=== PATIENT | female | born 1940 | race Caucasian/White ===

== ENCOUNTER → 2021-07-02 | Outpatient (CLI) | payer MEDICARE, BC ==
[2021-07-02 11:48] VITALS: BP 158/54; PULSE 92; RESP 20
--- NOTE | 2021-07-02 12:29 | P.PAINCN ---
History of Present Illness - Reason for Consult Consult date: 07/02/21 - History of Present Illness This is a 21 years old female with a chronic history of severe low back pain and severe neck pain, patient reported that her neck pain and low back pain started more than 10 years ago she denies any initiating event, she reported her low back pain is more severe than her neck pain, the pain is constant and increases with any activity interference with the quality of life, she ambulates using walker , patient currently on multiple pain medication and she continued to have severe pain, denies any side effect of the medication, denies any fever or night sweats but she denies any change in bowel movements or urination Past Medical History Past Medical History: Cancer, Hypertension, Osteoarthritis (OA) Additional Past Medical History / Comment(s): anemic. "prediabetic". neuropathy feet and hands. back pain. esophageal carcinoma History of Any Multi-Drug Resistant Organisms: None Reported Past Surgical History: Back Surgery, Hysterectomy, Pacemaker Additional Past Surgical History / Comment(s): part of esophagus and stomach removed Past Anesthesia/Blood Transfusion Reactions: Previous Problems w/ Anesthesia Additional Past Anesthesia/Blood Transfusion Reaction / Comm: "she cant go under full anesthesia afraid that she wont wake up" Type of Cardiac Device: Permanent Pacemaker Device Placement Date:: 01/2021 Smoking Status: Former smoker Medications and Allergies Home Medications Medication Instructions Recorded Confirmed Type Allopurinol [Zyloprim] 100 mg PO BID 07/02/21 07/02/21 History Cyclobenzaprine [Flexeril] 5 mg PO TID 07/02/21 07/02/21 History DULoxetine HCL [Cymbalta] 60 mg PO DAILY 07/02/21 07/02/21 History Gabapentin 300 mg PO Q6HR 07/02/21 07/02/21 History HYDROcodone/APAP 10-325MG [[place] 1 tab PO Q4-6H PRN 07/02/21 07/02/21 History 10-325] Losartan Potassium [Cozaar] 25 mg PO DAILY 07/02/21 07/02/21 History rOPINIRole HCL [Requip] 2 mg PO BID 07/02/21 07/02/21 History Allergies Allergy/AdvReac Type Severity Reaction Status Date / Time codeine Allergy Unknown Verified 06/26/21 13:19 latex Allergy Unknown Verified 06/26/21 13:19 steroids Allergy Unknown Uncoded 06/26/21 13:19 Physical Exam Vitals: Vital Signs Pulse Resp BP Pulse Ox 07/02/21 11:33 92 20 158/54 99 Physical Examinations : -Constitutiona : Cooperative , not in acute distress . -HEENT : nech : supple , no Lymphadenopathy , normal thyroid size . : eyes : no ptosis , no icterus, no photophobia . - neurologic : Cranial nerve II to XII intact , no focal neurological deffecit . -psychatric : alert , oriented X 3 , appropriate affect , intact judgment and insight . -Lymphatic : no Lymphadenopathy . - musculoskeltal : Cervical Spine motor stregnth in the deltoid and biceps, normal right side , normal Left side motor stregnth biceps and the wrist extensors normal right side ,normal left side . motor stregnth in the triceps muscle . normal Right side , normal Left side deep tendon reflexes normal at the biceps , normal at Brachioradialis , normal at triceps. cervical facet loading test: Positive Bilaterally Spurling test= positive Right , positive left. Neck distraction test= positive Right , positive left. Robin sign= positive right, positive left . Lumber spine moter stegnth lower extremities ,thigh and legs 5/5 Right side , 5/5 Left side deep tendon reflexes : normal Knee Jerk , normal ankle Jerk lumber facet Loading Test =positive Right , positive Left Range of motion of the lumbar spine Flexion 30 degrees, extension 10 degrees strait leg raising test = positive at 30 degree Fabere test= positive Right , and positive LT . tenderness over the Sacroiliac joint on the Right , and Left sides Results Comments: Computed tomography scan of the lumbar spine and lumbar degenerative disc disease Assessment and Plan Plan: Assessment and plan=1-lumbar radiculopathy. 2-lumbar degenerative disc disease. 3-lumbar spondylosis. 4-cervical radiculopathy. she could benefit from lumbar epidural steroid injection at L4-5 . She should continue her current medication ,as prescribed from her primary care Time with Patient: Greater than 30 PQRS Measure Charge Sheet Measure #130: Documentation of Current Meds in Medical Chart: Patient's medications documented in chart Measure #226: Tobacco Use: Screen & Cessation Intervention: Pt not a tobacco user Measure #111: Pneumonia Vaccination: Pneumococcal vaccine administered or previously received Measure #47: Advance Care Plan: Advance care planning discussed & documented, pt chose/unable to give Measure #412: Opioid Treatment Agreement: No documentation of signed opioid treatment agreement Measure #408: Opioid Therapy Follow-up Evaluation: Patient had NO f/u eval minimum every 3 months during opioid therapy Measure #317: Preventitive Care & Scrn High Bld Press & F/U: Pre-hypertensive or hypertensive BP documented, pt will f/u with PCP Measure #128: Body Mass Index (BMI) Screening & Follow-up: BMI documented ABOVE normal parameters - f/u documented Measure #131: Pain Assessment & Follow-up: Pain positive & plan documented, Follow-up scheduled Measure #431: Unhealthy Alcohol Use Preventative Care & Scrn: Patient not identified as an unhealthy alcohol user Mode of Arrival: Walker - Pain Location Back Non-Pharmacological Interventions: Inactivity, Physical Therapy Pharmacological Interventions: Epidural, PRN Medication PQRS Narrative: Blood Pressure 158/54 Pain Intensity [Back] 7 Scale Used Numeric (1 - 10) Hx Alcohol Use (MH) No Home Medications: Ambulatory Orders Allopurinol [Zyloprim] 100 mg PO BID 07/02/21 Cyclobenzaprine [Flexeril] 5 mg PO TID 07/02/21 DULoxetine HCL [Cymbalta] 60 mg PO DAILY 07/02/21 Gabapentin 300 mg PO Q6HR 07/02/21 HYDROcodone/APAP 10-325MG [[place] 10-325] 1 tab PO Q4-6H PRN 07/02/21 Losartan Potassium [Cozaar] 25 mg PO DAILY 07/02/21 rOPINIRole HCL [Requip] 2 mg PO BID 07/02/21
== END ==
LOC: PNWHC3 11:00
PROVIDERS: ATTEND Specialist
DX: M51.16 Intervertebral disc disorders with radiculopathy, lumbar region (principal); M47.26 Other spondylosis with radiculopathy, lumbar region; M54.12 Radiculopathy, cervical region; I10 Essential (primary) hypertension; M19.90 Unspecified osteoarthritis, unspecified site; Z87.891 Personal history of nicotine dependence; Z79.899 Other long term (current) drug therapy; Z91.040 Latex allergy status; Z88.8 Allergy status to other drugs, medicaments and biological substances
CPT/HCPCS: 99202